=== PATIENT | female | born 1995 | race Hispanic/Latino ===

== ENCOUNTER 2022-11-19 14:21 | Emergency (ER) | payer SELFPAY | END 2022-11-19 14:54 | disposition home or self-care (01) | LOC: ERS 14:21 | DX: J11.1 Influenza due to unidentified influenza virus with other respiratory manifestations (principal); F17.210 Nicotine dependence, cigarettes, uncomplicated | CPT/HCPCS: 87804; 99283 ==

== ENCOUNTER 2023-04-02 18:50 | Emergency (ER) | payer SELFPAY ==
[2023-04-02] MEDS ORDERED: traMADol HCl 50 MG TAB ONE (19:38)
== END 2023-04-02 20:05 | disposition home or self-care (01) ==
LOC: ERS 18:50
DX: S93.491A Sprain of other ligament of right ankle, initial encounter (principal); S90.01XA Contusion of right ankle, initial encounter; Y93.31 Activity, mountain climbing, rock climbing and wall climbing

== ENCOUNTER 2023-10-04 12:55 | Emergency (ER) | payer SELFPAY ==
[2023-10-04] MEDS ORDERED: Ketorolac Tromethamine 30 MG/ML VIAL ONE (15:25)
== END 2023-10-04 17:35 | disposition home or self-care (01) ==
LOC: ERS 12:55
DX: M54.2 Cervicalgia (principal); M54.9 Dorsalgia, unspecified; Z87.891 Personal history of nicotine dependence
CPT/HCPCS: 72040; 72072; 96372; 99283; J1885